=== PATIENT | female | born 1960 | race African-American/Black ===

== ENCOUNTER 2018-03-15 07:06 | Inpatient (IN) | payer MEDICAID ==
[~2018-03-15] VITALS: Ht 160 cm; Wt 73.9 kg
[~2018-03-15 07:06] MED LIST: ALBU2.5V13 IH; ATOR20TA PO; GLIM2TAB2 PO; METF-414 PO
[2018-03-15] MEDS ORDERED: CEFOXITIN SODIUM 1 G/VIAL IV ONE (07:15)
[2018-03-15] MEDS ORDERED: CEFOXITIN 2G in DEXTROSE 5% WATER 100ML IV NR (07:30)
[2018-03-15 09:20] LABS: UCG SCREEN NEGATIVE
[2018-03-15] MEDS ORDERED: BUPIVACAINE HCL/PF 0.5% (5MG/ML) 10ML ONE (09:32)
[2018-03-15] MEDS ORDERED: SKIN ADHESIVE 0.7 GM EA TOP ONE (09:32)
[2018-03-15] MEDS ORDERED: LIDOCAINE HCL 1% 20ML VIAL (Pyxis) INJ ONE (09:32)
[2018-03-15] MEDS ORDERED: FENTANYL CITRATE/PF 50MCG/ML 2ML VIAL ONE ×2 (09:42→10:26)
[2018-03-15] MEDS ORDERED: PROPOFOL 200MG/20ML VIAL IV ONE (09:42)
[2018-03-15] MEDS ORDERED: ROCURONIUM BROMIDE 10MG/ML VIAL 5ML IV ONE (09:42)
[2018-03-15] MEDS ORDERED: LIDOCAINE HCL/PF 1% 10 MG/ML 5ML VIAL ONE (09:42)
[2018-03-15] MEDS ORDERED: NEOSTIGMINE METHYLSULFATE 1MG/ML 10 ML VIAL ONE (10:40)
[2018-03-15] MEDS ORDERED: GLYCOPYRROLATE 0.2 MG/ML 2ML VIAL ONE (10:40)
[2018-03-15] MEDS ORDERED: ESMOLOL HCL 10MG/ML 10ML VIAL IV ONE (10:41)
[2018-03-15] MEDS ORDERED: ONDANSETRON HCL 4MG/2ML INJ ONE (10:41)
[2018-03-15] MEDS ORDERED: KETOROLAC 30MG/ML VIAL ONE (10:42)
[2018-03-15] MEDS ORDERED: HYDRALAZINE 20MG/ML VIAL ONE (10:44)
[2018-03-15] MEDS: HYDROMORPHONE HCL/PF 2MG/ML CPJ IV PRN ×7 (10:55→20:13)
[2018-03-15] MEDS ORDERED: HYDROMORPHONE HCL/PF 2MG/ML CPJ ONE (10:59)
[2018-03-15] MEDS ORDERED: HYDRALAZINE 20MG/ML VIAL IV PRN (11:00)
[2018-03-15] MEDS ORDERED: ONDANSETRON HCL 4MG/2ML INJ IV PRN ×2 (11:00→15:00)
[2018-03-15] MEDS ORDERED: SODIUM CHLORIDE 0.45% 1,000 ML IV SCH (15:00)
[2018-03-15] MEDS ORDERED: NAPR220T66 PO (15:24)
[2018-03-15] MEDS: KETOROLAC 30MG/ML VIAL IV SCH (15:43)
[2018-03-15 16:00] VITALS: BP 151/60
[2018-03-15] MEDS ORDERED: SODIUM CHLORIDE 0.9% 1,000 ML IV SCH (16:10)
[2018-03-15 20:00] VITALS: BP 128/73
[2018-03-16] VITALS: BP 127/78
[2018-03-16] MEDS: HYDROMORPHONE HCL/PF 2MG/ML CPJ IV PRN ×2 (01:44→10:48)
[2018-03-16 04:00] VITALS: BP_SYST 118; BP_SYST 125; BP_DIAS 67; BP_DIAS 78
[2018-03-16] MEDS: KETOROLAC 30MG/ML VIAL IV SCH ×2 (06:09)
[2018-03-16 08:00] VITALS: BP 116/70
[2018-03-16 10:03] VITALS: BP 116/70
[2018-03-16 10:48] VITALS: BP 122/74
== END 2018-03-16 12:00 | disposition home or self-care (01) | DRG 263 ==
LOC: OR 07:06 → 6EST 07:07 → EDSTATUS 09:00
PROVIDERS: ADMIT Specialist; ATTEND Specialist
PROC: 0FT44ZZ Resection of Gallbladder, Percutaneous Endoscopic Approach (ICD-10-PCS; principal; 2018-03-15 09:30)
DX: K80.20 Calculus of gallbladder without cholecystitis without obstruction (principal); E11.9 Type 2 diabetes mellitus without complications; F17.200 Nicotine dependence, unspecified, uncomplicated; Z79.84 Long term (current) use of oral hypoglycemic drugs; Z79.51 Long term (current) use of inhaled steroids
CPT/HCPCS: 81025; 82962; 88304; J0360; J0694; J1170; J1885; J2405; J2704; J2710; J3010; J3490; J7030; J7060

== ENCOUNTER 2019-10-06 06:30 | Emergency (ER) | payer MEDICAID ==
[~2019-10-06] VITALS: Ht 160 cm; Wt 77.0 kg
[~2019-10-06 06:30] MED LIST changes: -ALBU2.5V13 IH; -ATOR20TA PO; -GLIM2TAB2 PO; -METF-414 PO; +NAPR220T66 PO
[2019-10-06] MEDS ORDERED: ONDANSETRON 4MG ODT PO ONE (08:15)
[2019-10-06] MEDS ORDERED: KETOROLAC 60MG/2ML VIAL IM ONE (08:15)
[2019-10-06] MEDS ORDERED: MORPHINE SULFATE 10 MG/ML CPJ IV ONE (08:15)
[2019-10-06 09:05] VITALS: BP 133/79
== END 2019-10-06 09:41 | disposition home or self-care (01) ==
LOC: ER 06:30
DX: M54.30 Sciatica, unspecified side (principal); E11.9 Type 2 diabetes mellitus without complications
CPT/HCPCS: 96372; 96374; 99284; J1885; J2270; Q0162